=== PATIENT | male | born 1950 | race Caucasian/White ===

== ENCOUNTER 2017-04-12 18:20 | Emergency (ER) | payer MEDICARE, OTHER ==
[2017-04-12 18:33] VITALS: BP 197/90; PULSE 74; RESP 20; TEMP 97.5
[2017-04-12] MEDS ORDERED: GELATIN SPONGE,ABSORB (SMALL) 1 EACH SPONGE TOPICAL STA (19:06)
--- NOTE | 2017-04-12 19:13 | ED ---
Wound/Laceration HPI - General Chief Complaint: Wound/Laceration Stated Complaint: Left grant bleed Time Seen by Provider: 04/12/17 18:56 Source: patient, RN notes reviewed, old records reviewed Mode of arrival: ambulatory Limitations: no limitations - History of Present Illness Initial Comments: This is a 66 year old male with a bleeding varicosity after he removed a scab from the shower. Patient reports he cut his leg last week while mowing the lawn , and was healing well afterward. Patient reports he dried off from the shower and noticed that he was bleeding from a small site on the lower leg. Patient is not on blood thinner. - Related Data Allergies Allergy/AdvReac Type Severity Reaction Status Date / Time No Known Allergies Allergy Verified 04/12/17 18:32 Review of Systems ROS Statement: Those systems with pertinent positive or pertinent negative responses have been documented in the HPI. ROS Other: All systems not noted in ROS Statement are negative. Past Medical History Past Medical History: Hypertension History of Any Multi-Drug Resistant Organisms: None Reported Past Surgical History: Hernia Repair Additional Past Surgical History / Comment(s): sinus surgery Past Psychological History: No Psychological Hx Reported Smoking Status: Current every day smoker Past Alcohol Use History: Daily Past Drug Use History: None Reported General Exam Limitations: no limitations General appearance: alert, in no apparent distress Head exam: Present: atraumatic, normocephalic, normal inspection Eye exam: Present: normal appearance, PERRL, EOMI. Absent: scleral icterus, conjunctival injection, periorbital swelling ENT exam: Present: normal exam, mucous membranes moist Neck exam: Present: normal inspection. Absent: tenderness, meningismus, lymphadenopathy Respiratory exam: Present: normal lung sounds bilaterally. Absent: respiratory distress, wheezes, rales, rhonchi, stridor Cardiovascular Exam: Present: regular rate, normal rhythm, normal heart sounds. Absent: systolic murmur, diastolic murmur, rubs, gallop, clicks GI/Abdominal exam: Present: soft, normal bowel sounds. Absent: distended, tenderness, guarding, rebound, rigid Extremities exam: Present: normal inspection, full ROM, normal capillary refill , other (varicosity over left lwer leg. Patient has 2mm site from where it was bleeding. The bleeding has stopped and scab has reformed. ). Absent: tenderness , pedal edema, joint swelling, calf tenderness Back exam: Present: normal inspection Neurological exam: Present: alert, oriented X3, CN II-XII intact Psychiatric exam: Present: normal affect, normal mood Skin exam: Present: warm, dry, intact, normal color. Absent: rash Course Vital Signs 04/12/17 18:26 Temperature 97.5 F L Pulse Rate 74 Respiratory 20 Rate Blood Pressure 197/90 O2 Sat by Pulse 99 Oximetry Medical Decision Making - Medical Decision Making This is a 66 year old male with a bleeding varicosity after he removed a scab from the shower. Patient reports he cut his leg last week while mowing the lawn , and was healing well afterward. Patient reports he dried off from the shower and noticed that he was bleeding from a small site on the lower leg. PAtient has multiple varicosity on bilateral lower legs. Patient bleeding has subsided on exam. Patient given a piece of gelfoam and compression dressing and advised to avoid taking the dressing off and to not mess with the scab as he will likely rebleed again. Patient agress to treatment plan adn will comply. REturn parameters discussed. Disposition Clinical Impression: Bleeding from varicose vein Disposition: HOME SELF-CARE Condition: Good Instructions: Varicose Veins (ED) Additional Instructions: Patient advised to keep the wound covered. Patient advised to elevate the extremity and bleeding does recur. Keep the dressing on for the next 24 hours. Return to the emergency department if any alarming signs or symptoms occur. Referrals: Tomás Funes MD [Primary Care Provider] - 1-2 days Time of Disposition: 19:12
== END 2017-04-12 19:27 | disposition home or self-care (01) ==
LOC: EC 18:20
DX: I83.892 Varicose veins of left lower extremity with other complications (principal); F17.200 Nicotine dependence, unspecified, uncomplicated
CPT/HCPCS: 99283

== ENCOUNTER → 2022-01-19 | Outpatient (CLI) | payer MEDICARE, OTHER ==
--- NOTE | 2022-01-19 12:51 | CONS ---
CONSULTATION DATE OF SERVICE: 01/19/2022 This 71-year-old gentleman has been evaluated in Sleep Center for obstructive sleep apnea-hypopnea syndrome. HISTORY OF PRESENT ILLNESS/SLEEP-WAKE EVALUATION: The patient has had a history of obstructive sleep apnea for many years. His last study was done in 2013 in another institution. He continues to use his CPAP equipment but still has some awakenings from sleep. His sleep schedule is from 11:30 p.m. to 6 a.m. No problems with falling asleep. No TV in bedroom. No history of hypnagogic hallucinations, sleep paralysis or cataplexy. During the day, the patient takes one nap in the middle of the afternoon. [place] Sleepiness Scale is 7. PAST MEDICAL HISTORY: Positive for hypertension, arthritis. PAST SURGICAL HISTORY: Surgery for nasal septum deviation. MEDICATIONS: Amlodipine, hydralazine. SOCIAL HISTORY: Positive for smoking on and off. Alcohol consumption occasional. FAMILY HISTORY: Positive for hypertension, arthritis. REVIEW OF SYSTEMS: Some awakenings from sleep even while using CPAP equipment, episodes of sleepiness during the day. PHYSICAL EXAMINATION: GENERAL: Pleasant gentleman without distress. VITAL SIGNS: BP 143/72, HR 67, RR 16, height 5 feet 11-3/4 inches, weight 245.2 pounds, body mass index 33.5, temperature 97.0, oxygen saturation at room air 96%. HEENT: PERRLA, EOMI, evaluation of oropharynx showed tongue protrudes midline. Low position of soft palate; Mallampati III. NECK: Supple, no JVD. Thyroid is not palpable. Neck measures 16-1/2 inches in circumference. LUNGS: Clear to percussion and to auscultation. Good air exchange. No wheezing or rhonchi. HEART: S1, S2 regular. No murmurs, gallops, or rubs. ABDOMEN: Soft and nontender. Bowel sounds are present. No organomegaly appreciated. EXTREMITIES: No clubbing or cyanosis. NEGATIVE DEVELOPER: Awake, alert, and oriented X3. Cranial nerves 2 to 7 intact. There is no fasciculation or atrophy. noted. No focal deficits observed. PLAN: 1. Polysomnography for reevaluation of patient's breathing during sleep. 2. CPAP and if necessary BiPAP titration for correction of respiratory abnormalities during sleep. 3. Watching and losing weight. 4. Sleep hygiene with regular time in bed for at least 7-1/2 hours. 5. No driving if feeling any sleepiness. Thank you very much for referring this patient for consultation. Sincerely, Jay Sargent MD, PhD, FAASM Diplomat of [place] [employer] Sleep Medicine Board of [place] [employer] Medicine Elevator Constructor of [facility] [place] MMODL / MADIHAN: [id number] /
--- NOTE | 2022-02-02 15:59 | CONS ---
CONSULTATION ADDENDUM: DATE OF SERVICE: 01/19/2022. This is an addendum to consultation. IMPRESSION: 1. History of obstructive sleep apnea-hypopnea syndrome for more than 15 years. The patient continued to use his CPAP equipment. Low position of soft palate, Mallampati 3. Episodes of sleepiness, obstructive sleep apnea-hypopnea syndrome. 2. Obesity; body mass index 33. 3. Hypertension. 4. History of arthritis. 5. Status surgery for nasal septum deviation. MMODL / IJN: [id number] /
== END ==
LOC: SLEEP 11:33
PROVIDERS: ATTEND Internal Medicine
DX: G47.33 Obstructive sleep apnea (adult) (pediatric) (principal); I10 Essential (primary) hypertension; E66.9 Obesity, unspecified; F17.200 Nicotine dependence, unspecified, uncomplicated; Z68.33 Body mass index [BMI] 33.0-33.9, adult; Z99.89 Dependence on other enabling machines and devices; Z98.890 Other specified postprocedural states; M19.90 Unspecified osteoarthritis, unspecified site; Z79.899 Other long term (current) drug therapy
CPT/HCPCS: 99202

== ENCOUNTER → 2022-04-12 | Outpatient (CLI) | payer MEDICARE, OTHER ==
--- NOTE | 2022-04-12 17:02 | P.PN ---
Subjective DATE: [] FOLLOW UP VISIT. Patient with obstructive sleep apnea hypopnea syndrome return to sleep center for follow-up visit. Recently patient had sleep study which documented obstructive sleep apnea hypopnea syndrome. Patient was initiated on new PAP unit and today is his first visit after starting to use new unit. Patient was able to use PAP equipment every night for the whole night. The patient does not have significant problems with the mask, PAP pressure and humidification. [place] sleepiness scale is 7. I checked Bi PAP unit. PAP unit pressure 19/15 cm H2O. Usage is 93 % for more then 4 hours, average 6 hours 50 minutes per night. Leak is 0.1 l/m, which is perfect. Apnea Hypopnea Index is 10.4, which is increased . MEDICATIONS:1. Amlodipine 2. valsartan During physical exam: GENERAL: A pleasant patient without any distress. VITAL SIGNS: BP 146/73, HR 67, RR 20 , weight 235.4, temperature 97.3, oxygen saturation at room air 94 . HEENT: PERRLA, EOMI.low position of soft palate, Mallapati 3 . NECK: Supple. No JVD. LUNGS: Clear to percussion and to auscultation. Good air exchange. No wheezing or rhonchi. HEART: S1, S2 regular. ABDOMEN: Soft and nontender.[] EXTREMITIES: No clubbing or cyanosis. TANKER SERVICEMAN: Awake, alert, and oriented x3. No focal deficit. Impressions: 1. Obstructive sleep apnea-hypopnea syndrome. Patient demonstrated great compliance with treatment, benefiting from treatment. Apnea-hypopnea index slightly increased to 10.4. 2. Periodic limb movements have been documented during the sleep study, no significant clinical complaints. 3. Hypertension. 4. Arthritis. 5. Status post surgery for nasal septum deviation. Plan: 1. Continue using BiPAP equipment every night for the whole night. I changed regimen in BiPAP unit to automatic with the maximal inspiratory pressure 23, minimal expiratory pressure 10 and pressure-support 4 cm of water 2. To change air filter at least 1-2 times per month. 3. PAP unit should stay lower then position of the head. 4. Advised patient to remove all remaining water from humidifier canister daily and make it dry after each usage. Refill canister with fresh distilled water before each usage. 5. Sleep hygiene with regular time in bed for at least 8 hours. 6. Precautions related to driving. No driving if feel any sleepiness. 7. I will maintain prescription for PAP supplies including mask, tube, filters. 8. Follow up visit in 3-4 months or earlier if patient has any problems. 9. Watching weight. Thank you very much for allowing me to participate in the management of your patient. Jay Sargent MD, PhD, FAASM. Diplomat of [place] Board [employer] Medicine, Sleep Medicine Board by [employer] Board of [employer] Medicine Marble Ceiling Installer of [facility] [place]
== END ==
LOC: SLEEP 16:34
PROVIDERS: ATTEND Internal Medicine
DX: G47.33 Obstructive sleep apnea (adult) (pediatric) (principal); G47.61 Periodic limb movement disorder; I10 Essential (primary) hypertension; M19.90 Unspecified osteoarthritis, unspecified site; Z98.890 Other specified postprocedural states; Z99.89 Dependence on other enabling machines and devices; F17.200 Nicotine dependence, unspecified, uncomplicated

== ENCOUNTER → 2022-07-13 | Outpatient (CLI) | payer MEDICARE, OTHER ==
--- NOTE | 2022-07-13 11:37 | P.PN ---
Subjective DATE: 07/13/2022 FOLLOW UP VISIT. Patient with obstructive sleep apnea hypopnea syndrome return to sleep center for follow-up visit. Information from previous visit have been reviewed. Patient is using PAP equipment every night for the whole night, getting PAP supplies in time. The patient does not have significant problems with the mask, PAP unit and humidification. [place] sleepiness scale is 6, which is normal. I checked BPAP unit. PAP unit pressure inspiratory maximal 23, expiratory minimal 10, average 22.5/18.5 cm H2O. Usage is 95 % for more then 4 hours, average 6.9 hours per night. Leak is 0 l/m, which is in perfect range. Apnea Hypopnea Index is 26.3 for the last months, which is significantly increased. Apnea-hypopnea index for the last 6 months 13.4. MEDICATIONS:1. Amlodipine 2. Losartan 3. Patient does not remember exactly the name of 3rd medication for the blood pressure. During physical exam: GENERAL: A pleasant patient without any distress. VITAL SIGNS: BP 174/79, HR 67, RR 18, weight 238.0, which is on 3 pounds more than during previous visit, temperature 97.0, oxygen saturation at room air 97 % . HEENT: PERRLA, EOMI.low position of soft palate, Mallapati 3 . NECK: Supple. No JVD. LUNGS: Clear to percussion and to auscultation. Good air exchange. No wheezing or rhonchi. HEART: S1, S2 regular. ABDOMEN: Soft and nontender.[] EXTREMITIES: No clubbing or cyanosis. SUPERINTENDENT GENERAL: Awake, alert, and oriented x3. No focal deficit. Impressions: 1. Obstructive sleep apnea-hypopnea syndrome. Patient demonstrated great compliance with treatment, benefiting from treatment, but apnea-hypopnea index significantly increased mostly secondary to obstructive events according to dating from the BiPAP machine. 2. Hypertension. 3. Arthritis. 4. Periodic limb movements during the sleep study, no clinical complaints. 5. Status post surgery for nasal septum deviation. Plan: 1. Continue using PAP equipment every night for the whole night. I increased pressure in BiPAP unit to maximal inspiratory pressure 25 and minimal expiratory pressure 12 cm of water 2. To change air filter at least 1-2 times per month. 3. PAP unit should stay lower then position of the head. 4. Advised patient to remove all remaining water from humidifier canister daily and make it dry after each usage. Refill canister with fresh distilled water before each usage. 5. Sleep hygiene with regular time in bed for at least 8 hours. 6. Precautions related to driving. No driving if feel any sleepiness. 7. I will maintain prescription for PAP supplies including mask, tube, filters. 8. Follow up visit in 1-2 months or earlier if patient has any problems. 9. Watching weight. Thank you very much for allowing me to participate in the management of your patient. Jay Sargent MD, PhD, FAASM. Diplomat of [place] [employer] Sleep Medicine, Sleep Medicine Board by [place] [employer] Medicine Adult Protective Caseworker of [facility] [place]
== END ==
LOC: SLEEP 10:17
PROVIDERS: ATTEND Internal Medicine
DX: G47.33 Obstructive sleep apnea (adult) (pediatric) (principal); Z99.89 Dependence on other enabling machines and devices; I10 Essential (primary) hypertension; M13.80 Other specified arthritis, unspecified site; G47.61 Periodic limb movement disorder; Z98.890 Other specified postprocedural states; F17.200 Nicotine dependence, unspecified, uncomplicated
CPT/HCPCS: 99212

== ENCOUNTER → 2022-07-28 | Outpatient (CLI) | payer MEDICARE, OTHER | END | disposition home or self-care (01) | LOC: LABWHC1 12:57 | PROVIDERS: ATTEND Allergy & Immunology | DX: M79.10 Myalgia, unspecified site (principal); M25.50 Pain in unspecified joint | CPT/HCPCS: 36415; 85652; 86140 ==

== ENCOUNTER → 2022-09-20 | Outpatient (CLI) | payer MEDICARE, OTHER ==
--- NOTE | 2022-09-20 11:36 | P.PN ---
Subjective DATE: 09/20/2022 FOLLOW UP VISIT. Patient with obstructive sleep apnea hypopnea syndrome return to sleep center for follow-up visit. Information from previous visit have been reviewed. Patient is using BPAP equipment every night for the whole night, getting PAP supplies in time. The patient does not have significant problems with the mask, BPAP unit and humidification. During previous visit apnea-hypopnea index was significantly increased to 26.3. And I changed BiPAP Pap pressure in the unit. Patient feels better after pressure was increased, sleeps better especially during the last week. [place] sleepiness scale is 8, which is normal. I checked information from BPAP unit. BPAP unit pressure maximal inspiratory pressure 25, minimal expiratory pressure 12, pressure-support 4, average pressure 21/17 cm H2O. Usage is 95 % for more then 4 hours, average 7.3 hours per night. Leak is 4.5 l/m, which is in acceptable range. Apnea Hypopnea Index is 11.2 average for last 2 months, 7.3 for the last months and 2.7 for the last week, and 1.5 for the last night. MEDICATIONS:1. Amlodipine 2. Losartan During physical exam: GENERAL: A pleasant patient without any distress. VITAL SIGNS: BP 162/79, HR 65, RR 18 , weight 232.2, patient lost 8 pounds since last visit, temperature 97.1, oxygen saturation at room air 96 % . HEENT: PERRLA, EOMI.low position of soft palate, Mallapati 3 . NECK: Supple. No JVD. LUNGS: Clear to percussion and to auscultation. Good air exchange. No wheezing or rhonchi. HEART: S1, S2 regular. ABDOMEN: Soft and nontender.[] EXTREMITIES: No clubbing or cyanosis. SAND AND GRAVEL PLANT OPERATOR: Awake, alert, and oriented x3. No focal deficit. Impressions: 1. Obstructive sleep apnea-hypopnea syndrome. Patient demonstrated great compliance with treatment, benefiting from treatment. Respiration improved after pressure was adjusted during the last visit. 2. Hypertension. 3. Arthritis. 4. Periodic limb movements during sleep test, no clinical symptoms. 5. Status post surgical treatment for nasal septum deviation. Plan: 1. Continue using PAP equipment every night for the whole night. 2. To change air filter at least 1-2 times per month. 3. PAP unit should stay lower then position of the head. 4. Advised patient to remove all remaining water from humidifier canister daily and make it dry after each usage. Refill canister with fresh distilled water before each usage. 5. Sleep hygiene with regular time in bed for at least 8 hours. 6. Precautions related to driving. No driving if feel any sleepiness. 7. I will maintain prescription for PAP supplies including mask, tube, filters. 8. Follow up visit in 4 months or earlier if patient has any problems. 9. Watching weight. Thank you very much for allowing me to participate in the management of your patient. Jay Sargent MD, PhD, FAASM. Diplomat of [place] Board of Sleep Medicine, Sleep Medicine Board by [employer] Board of Internal Medicine Accounts Receivable Accountant of [facility] [place]
== END ==
LOC: SLEEP 10:33
PROVIDERS: ATTEND Internal Medicine
DX: G47.33 Obstructive sleep apnea (adult) (pediatric) (principal); Z99.89 Dependence on other enabling machines and devices; I10 Essential (primary) hypertension; G47.61 Periodic limb movement disorder; Z98.890 Other specified postprocedural states; M19.90 Unspecified osteoarthritis, unspecified site; Z79.899 Other long term (current) drug therapy; F17.200 Nicotine dependence, unspecified, uncomplicated
CPT/HCPCS: 99212

== ENCOUNTER → 2023-01-17 | Outpatient (CLI) | payer MEDICARE, OTHER ==
--- NOTE | 2023-01-17 12:07 | P.PN ---
Subjective DATE: 01/17/2023 FOLLOW UP VISIT. Patient with obstructive sleep apnea hypopnea syndrome return to sleep center for follow-up visit. Information from previous visit have been reviewed. Patient is using BPAP equipment every night for the whole night, getting PAP supplies in time. The patient does not have significant problems with the mask, PAP unit and humidification. [place] sleepiness scale is 7, which is normal. I checked information from BPAP unit. BPAP unit pressure maximal inspiratory pressure 25, minimal expiratory pressure 12, average pressure 20.6 over 16.6 cm H2O. Usage is average 7.1 hours per night. Leak is perfect 0 l/m. Apnea Hypopnea Index is 4.4, which is normal. MEDICATIONS:1. Amlodipine 2. Valsartan During physical exam: GENERAL: A pleasant patient without any distress. VITAL SIGNS: BP 166/82, HR 59, RR 12 , weight 236, temperature 97.8, oxygen saturation at room air 95 % . HEENT: PERRLA, EOMI.low position of soft palate, Mallapati 3 . NECK: Supple. No JVD. LUNGS: Clear to percussion and to auscultation. Good air exchange. No wheezing or rhonchi. HEART: S1, S2 regular. ABDOMEN: Soft and nontender.[] EXTREMITIES: No clubbing or cyanosis. ENGINEERING DESIGN SUPERVISOR: Awake, alert, and oriented x3. No focal deficit. Impressions: 1. Obstructive sleep apnea-hypopnea syndrome. Patient demonstrated good compliance with treatment, benefiting from treatment. 2. Hypertension. 3. History of periodic limb movements during sleep study, no complaints. 4. History of arthritis. 5. Status post surgical treatment for nasal septum deviation. 6. Minimal obesity falling body mass index, which is 32.1, patient increased weight of 4 pounds comparing to previous visit. Plan: 1. Continue using PAP equipment every night for the whole night. 2. To change air filter at least 1-2 times per month. 3. PAP unit should stay lower then position of the head. 4. Advised patient to remove all remaining water from humidifier canister daily and make it dry after each usage. Refill canister with fresh distilled water before each usage. 5. Sleep hygiene with regular time in bed for at least 8 hours. 6. Precautions related to driving. No driving if feel any sleepiness. 7. I will maintain prescription for PAP supplies including mask, tube, filters. 8. Watching and losing weight. 9. Follow up visit in 6 months or earlier if patient has any problems. Thank you very much for allowing me to participate in the management of your patient. Jay Sargent MD, PhD, FAASM. Diplomat of [place] [employer] Sleep Medicine, Sleep Medicine Board by [place] [employer] of Internal Medicine Reservoir Engineering Manager of [facility] [place]
== END ==
LOC: SLEEP 11:14
PROVIDERS: ATTEND Internal Medicine
DX: G47.33 Obstructive sleep apnea (adult) (pediatric) (principal); I10 Essential (primary) hypertension; E66.9 Obesity, unspecified; Z68.32 Body mass index [BMI] 32.0-32.9, adult; Z87.39 Personal history of other diseases of the musculoskeletal system and connective tissue
CPT/HCPCS: 99212

== ENCOUNTER → 2023-07-26 | Outpatient (CLI) | payer MEDICARE, OTHER ==
--- NOTE | 2023-07-26 11:01 | P.PN ---
Subjective DATE: 07/26/2023 FOLLOW UP VISIT. Patient with obstructive sleep apnea hypopnea syndrome return to sleep center for follow-up visit. Information from previous visit have been reviewed. Patient is using PAP equipment every night for the whole night, getting PAP supplies in time. The patient does not have significant problems with the mask, PAP unit and humidification. [place] sleepiness scale is increased to 12. I checked information from PAP unit. PAP unit pressure maximal inspiratory pressure 25, minimal expiratory pressure 12, pressure-support 4, average pressure 20.5 over 16.5 cm H2O. Usage is 100 % for more then 4 hours, average 6.4 hours per night. Leak is 0 l/m, which is in perfect range. Apnea Hypopnea Index is 6.0, which is borderline. MEDICATIONS:1. Amlodipine 2. Losartan During physical exam: GENERAL: A pleasant patient without any distress. VITAL SIGNS: BP 167/78, HR 65, RR 16 , weight 223.8, temperature 97.8, oxygen saturation at room air 96 % . HEENT: PERRLA, EOMI.low position of soft palate, Mallapati 3 . NECK: Supple. No JVD. LUNGS: Clear to percussion and to auscultation. Good air exchange. No wheezing or rhonchi. HEART: S1, S2 regular. ABDOMEN: Soft and nontender.[] EXTREMITIES: No clubbing or cyanosis. REPAIR ELECTRIC MOTOR ASSEMBLER: Awake, alert, and oriented x3. No focal deficit. Impressions: 1. Obstructive sleep apnea-hypopnea syndrome. Patient demonstrated great compliance with treatment, benefiting from treatment. 2. Hypertension. 3. Periodic limb movements during sleep study, no complaints at the present time. 4. History of arthritis. 5. Status post surgical treatment for nasal septum deviation. 6. Patient lost 13 pounds since previous visit. Plan: 1. Continue using PAP equipment every night for the whole night. 2. To change air filter at least 1-2 times per month. 3. PAP unit should stay lower then position of the head. 4. Advised patient to remove all remaining water from humidifier canister daily and make it dry after each usage. Refill canister with fresh distilled water before each usage. 5. Sleep hygiene with regular time in bed for at least 8 hours. 6. Precautions related to driving. No driving if feel any sleepiness. 7. I will maintain prescription for PAP supplies including mask, tube, filters. 8. Follow up visit in 6 months or earlier if patient has any problems. 9. Watching weight. Thank you very much for allowing me to participate in the management of your patient. Jay Sargent MD, PhD, FAASM. Diplomat of [place] Board of Sleep Medicine, Sleep Medicine Board by [place] Board of Internal Medicine Cyber Crime Investigator of [facility] [place]
== END ==
LOC: 3 N SLEEP 10:12
PROVIDERS: ATTEND Internal Medicine
DX: G47.33 Obstructive sleep apnea (adult) (pediatric) (principal); I10 Essential (primary) hypertension; G47.61 Periodic limb movement disorder; M19.90 Unspecified osteoarthritis, unspecified site; J34.2 Deviated nasal septum; F17.200 Nicotine dependence, unspecified, uncomplicated; Z99.89 Dependence on other enabling machines and devices
CPT/HCPCS: 99212

== ENCOUNTER → 2023-08-17 | Outpatient (CLI) | payer MEDICARE, OTHER ==
--- NOTE | 2023-08-17 12:31 | XR ---
EXAM TYPE: LUMBAR SPINE X RAY SERIES COMPARISON: NONE HISTORY: Chronic back pain TECHNIQUE: 4 views are submitted. FINDINGS: Alignment is anatomic. The pedicles are intact. The transverse processes are intact. There is diff use osteopenia with multilevel moderate degenerative disc disease and advanced facet arthropathy invo lving the mid and lower lumbar spine. Suspect multilevel foraminal encroachment. Grade 1 anterior lis thesis L4-L5 likely degenerative. There is retrolisthesis of L2-3 and L3-L4. Vascular calcifications are noted. Suspect a 3.2 cm abdominal aortic aneurysm. Interspinous distance narrowing compatible wit h [place] disease. IMPRESSION: 1. Multilevel moderate degenerative disc disease and facet arthropathy as discussed above. Suspect mu ltilevel foraminal encroachment recommend MRI. 2. A 3.2 cm abdominal aortic aneurysm suspected.
== END | disposition home or self-care (01) ==
LOC: RADXRMAIN 12:00
PROVIDERS: ATTEND Internal Medicine Geriatric Medicine
DX: M51.36 Other intervertebral disc degeneration, lumbar region (principal); M47.816 Spondylosis without myelopathy or radiculopathy, lumbar region; G89.29 Other chronic pain
CPT/HCPCS: 72100

== ENCOUNTER 2023-10-16 09:08 | Day surgery (SDC) | payer MEDICARE, OTHER ==
[~2023-10-16 09:08] MED LIST: LIDOCAINE 1% (10MG/ML) FOR IV START INTRADERMA PRN
[2023-10-16] MEDS: LACTATED RINGERS 1,000 ML IV SCH (09:49)
[2023-10-16 10:06] VITALS: TEMP 97.8
[2023-10-16] MEDS ORDERED: PROPOFOL 10 MG/ML 20 ML VIAL IV ONE (10:38)
--- NOTE | 2023-10-16 10:59 | P.PCN ---
Date of Procedure: 10/16/23 Procedure(s) Performed: BRIEF HISTORY: Patient is a 73-year-old pleasant white male scheduled for an elective colonoscopy as a par screening for colon cancer. t of PROCEDURE PERFORMED: Colonoscopy with snare polypectomy. PREOPERATIVE DIAGNOSIS: Screening for colon cancer. IV sedation per Anesthesia. PROCEDURE: After informed consent was obtained, the patient, was brought into the endoscopy unit. IV sedation was administered by Anesthesia under continuous monitoring. Digital rectal examination was normal. Initially the Olympus CF-160 flexible video colonoscope was then inserted in the rectum, gradually advanced into the cecum without any difficulty. Careful examination was performed as the scope was gradually being withdrawn. Ileocecal valve and the appendiceal orifice were visualized and appeared normal. Prep was fair. Mucosa of the cecum, ascending colon, appeared normal. The hepatic flexure there was a 6 minute a polyp removed by cold snare polypectomy. In the transverse colon there was a 5 mm and 7 mm polyp that was removed by cold snare polypectomy. Rest of the transverse colon, descending colon, sigmoid colon, and rectum appeared normal. Retroflexion was performed in the rectum and no lesions were seen. The patient tolerated the procedure well. IMPRESSION: 6 mm hepatic flexure polyp status post cold snare polypectomy 5 mm and 7 mm transverse colon polyp status post snare polypectomy RECOMMENDATIONS: Findings of this examination were discussed with the patient a s his family.. He was advised to follow with the biopsy results. If the biopsy result adenoma he can have a repeat colonoscopy in 3 years
[2023-10-16 11:35] VITALS: BP 127/78; PULSE 78; RESP 18
== END 2023-10-16 11:31 | disposition home or self-care (01) ==
LOC: ORWHC2ENDO 09:08
PROVIDERS: ATTEND Internal Medicine Gastroenterology
DX: Z12.11 Encounter for screening for malignant neoplasm of colon (principal); D12.3 Benign neoplasm of transverse colon; I10 Essential (primary) hypertension; G47.33 Obstructive sleep apnea (adult) (pediatric); K21.9 Gastro-esophageal reflux disease without esophagitis; Z79.899 Other long term (current) drug therapy; Z98.890 Other specified postprocedural states
CPT/HCPCS: 88305; 45385; J2704

== ENCOUNTER → 2024-01-14 | Outpatient (CLI) | payer MEDICARE, OTHER ==
--- NOTE | 2024-01-14 09:19 | US ---
EXAMINATION TYPE: US duplex aorta DATE OF EXAM: 01/14/2024 COMPARISON: NONE CLINICAL INDICATION: Male, 73 years old with history of I71.40 AAA WITHOUT RUPTURE; F/U to xray TECHNIQUE: Multiple sonographic images of the abdominal aorta are obtained. FINDINGS: EXAM MEASUREMENTS: Abdominal Aorta: Proximal: 3.2 x 2.3 cm Mid: 2.3 x 2.4 cm Distal: 2.3 x 2.7 cm Bifurcation: Right Iliac: 1.3 x 1.5 cm Left Iliac: 1.1 x 1.6 cm WEB MARKETING STRATEGIST NOTES: Upper limits of normal proximal aorta 3.2 cm found on previous x ray. IMPRESSION: Proximal abdominal aorta dilation measuring up to 3.2 cm consider complete evaluation with CT angiogr am of the abdomen and pelvis.
== END | disposition home or self-care (01) ==
LOC: RADUSWWP 07:27
PROVIDERS: ATTEND Internal Medicine Geriatric Medicine
DX: I71.40 Abdominal aortic aneurysm, without rupture, unspecified (principal)
CPT/HCPCS: 93979

== ENCOUNTER → 2024-01-23 | Outpatient (CLI) | payer MEDICARE, OTHER ==
[2024-01-23 12:02] LABS: African American GFR (CKD) >90 (>60 ml/min/1.73 sqM); Blood Urea Nitrogen 24 mg/dL (9-20); Non-African American GFR(CKD) 87 (>60 ml/min/1.73 sqM)
--- NOTE | 2024-01-23 13:27 | CT ---
EXAMINATION TYPE: CT angio abdomen pelvis DATE OF EXAM: 01/23/2024 COMPARISON: None HISTORY: AAA CT DLP: 1097.3 mGycm CONTRAST: CTA abdominal aorta with 3-D reconstruction is performed without Oral Contrast and without and with I V Contrast, patient injected with 100 mL of Isovue 370. Contrast CTA of the abdominal aorta was performed from the lung bases through the base of the pelvis. 3-D reconstruction imaging obtained at a separate workstation. ABDOMINAL AORTA: Aneurysm at the level of the aortic hiatus measuring 3.2 cm AP dimension. Patent miguel iac and SMA arteries although there is calcific plaque at their origins. Abdominal aorta is otherwise of normal caliber measuring up to 2.6 cm. Scattered mural thrombus. Calcific plaque at the origin of the left renal artery may reflect a degree of renal artery stenosis. Right renal artery is patent wi th mild calcific plaque seen. Calcific plaque noted extending into the iliac arteries which are paten t bilaterally. LIVER/GB- No significant abnormality is seen. PANCREAS- No significant abnormality is seen. SPLEEN- No significant abnormality is seen. ADRENALS- No significant abnormality is seen. KIDNEYS/BLADDER-renal cystic changes noted bilaterally. BOWEL- No Significant abnormality GENITAL ORGANS: Prostate gland enlargement. LYMPH NODES- No greater than 1cm abdominal or pelvic lymph nodes areappreciated. OSSEOUS STRUCTURES- No significant abnormality is seen. OTHER- No significant abnormality is seen. IMPRESSION- 1. Abdominal aortic aneurysm at the level of aortic hiatus.
== END | disposition home or self-care (01) ==
LOC: RADCTMAIN 11:07
PROVIDERS: ATTEND Internal Medicine Geriatric Medicine
DX: I71.40 Abdominal aortic aneurysm, without rupture, unspecified (principal)
CPT/HCPCS: 82565; 84520; 36415; 74174; Q9967

== ENCOUNTER → 2024-02-28 | Outpatient (CLI) | payer MEDICARE, OTHER ==
[2024-02-28 10:28] VITALS: BP 145/64; PULSE 65; RESP 16; TEMP 97.6
--- NOTE | 2024-02-28 10:45 | P.PROGSL ---
Subjective DATE: 02/28/2024 FOLLOW UP VISIT. Patient with obstructive sleep apnea hypopnea syndrome return to sleep center for follow-up visit. Information from previous visit have been reviewed. Patient is using PAP equipment every night for the whole night, getting PAP supplies in time. The patient does not have significant problems with the mask, PAP unit and humidification. [place] sleepiness scale is 8, which is normal. I checked information from PAP unit. PAP unit pressure maximal inspiratory pressure 25, minimal expiratory pressure 12, pressure support 4, average pressure 21/17 cm H2O. Usage is 100% for more then 4 hours, average 7 hours per night. Leak is 2 l/m, which is in acceptable range. Apnea Hypopnea Index is 6.0, which is normal. MEDICATIONS: Please see below During physical exam: GENERAL: A pleasant patient without any distress. VITAL SIGNS: Please see below. HEENT: PERRLA, EOMI.low position of soft palate, Mallapati 3. NECK: Supple. No JVD. LUNGS: Clear to percussion and to auscultation. Good air exchange. No wheezing or rhonchi. HEART: S1, S2 regular. ABDOMEN: Soft and nontender.[] EXTREMITIES: No clubbing or cyanosis. DIRECTOR OF COMMUNITY EDUCATION: Awake, alert, and oriented x3. No focal deficit. Impressions: 1. Obstructive sleep apnea-hypopnea syndrome. Patient demonstrated great compliance with treatment, benefiting from treatment. 2. Hypertension. 3. Periodic limb movements by results of sleep study, no clinical complaints. 4. History of arthritis. 5. Status post surgical treatment for nasal septum deviation. 6. Overweight, patient lost 14 pounds since previous visit, BMI 29.3. Plan: 1. Continue using PAP equipment every night for the whole night. 2. To change air filter at least 1-2 times per month. 3. PAP unit should stay lower then position of the head. 4. Advised patient to remove all remaining water from humidifier canister daily and make it dry after each usage. Refill canister with fresh distilled water before each usage. 5. Sleep hygiene with regular time in bed for at least 8 hours. 6. Precautions related to driving. No driving if feel any sleepiness. 7. I will maintain prescription for PAP supplies including mask, tube, filters. 8. Watching weight. 9. Follow up visit in 6 months or earlier if patient has any problems. Thank you very much for allowing me to participate in the management of your patient. Jay Sargent MD, PhD, FAASM. Diplomat of [place] [employer], Sleep Medicine Board by [employer] Tariff Clerk of [facility] [place] Objective - Vital Signs Vital Signs: Vital Signs Temp 97.6 F 02/28/24 10:27 Pulse 65 02/28/24 10:27 Resp 16 02/28/24 10:27 BP 145/64 02/28/24 10:27 Pulse Ox 95 02/28/24 10:27 FiO2 Intake & Output 02/27/24 02/28/24 02/28/24 18:59 06:59 18:59 Weight 94.914 kg Home Medications: Home Medications Medication Instructions Recorded Confirmed Type Amlodipine-Valsartan 5-320 1 tab PO HS 10/12/23 10/16/23 History Unk Multi Vitamin 1 tab PO DAILY 10/12/23 10/16/23 History hydrALAZINE HCL 50 mg PO DIRECTED PRN 10/15/23 10/16/23 History
== END ==
LOC: 3 N SLEEP 10:16
PROVIDERS: ATTEND Internal Medicine
DX: G47.33 Obstructive sleep apnea (adult) (pediatric) (principal); I10 Essential (primary) hypertension; G47.61 Periodic limb movement disorder; E66.3 Overweight; F17.200 Nicotine dependence, unspecified, uncomplicated; Z87.39 Personal history of other diseases of the musculoskeletal system and connective tissue; Z98.890 Other specified postprocedural states; Z99.89 Dependence on other enabling machines and devices; Z68.29 Body mass index [BMI] 29.0-29.9, adult; Z91.018 Allergy to other foods; Z79.899 Other long term (current) drug therapy
CPT/HCPCS: 99212

== ENCOUNTER → 2024-11-19 | Outpatient (CLI) | payer MEDICARE, OTHER ==
[2024-11-19 11:06] VITALS: BP 155/78; PULSE 64; RESP 16; TEMP 97.9
--- NOTE | 2024-11-19 11:54 | P.PROGSL ---
Subjective DATE: 11/19/2024 FOLLOW UP VISIT. Patient with obstructive sleep apnea hypopnea syndrome return to sleep center for follow-up visit. Information from previous visit have been reviewed. Patient is using PAP equipment every night for the whole night, getting PAP supplies in time. The patient does not have significant problems with the mask, PAP unit and humidification. [place] sleepiness scale is 6, which is normal. I checked information from PAP unit. BPAP unit pressure maximal inspiratory pressure 25, minimal expiratory pressure 12, pressure support 4, average pressure 20.3/16.3 cm H2O. Usage is 100% for more then 4 hours, average 6.5 hours per night. Leak is 5 l/m, which is in acceptable range. Apnea Hypopnea Index is 4.3, which is normal. MEDICATIONS have been reviewed, please see below. During physical exam: GENERAL: A pleasant patient without any distress. VITAL SIGNS: Please see below, weight is 212 lbs. HEENT: PERRLA, EOMI.low position of soft palate, Mallapati 3. NECK: Supple. No JVD. LUNGS: Clear to percussion and to auscultation. Good air exchange. No wheezing or rhonchi. HEART: S1, S2 regular. ABDOMEN: Soft and nontender.[] EXTREMITIES: No clubbing or cyanosis. REHABILITATION PSYCHOLOGIST: Awake, alert, and oriented x3. No focal deficit. Impressions: 1. Obstructive sleep apnea-hypopnea syndrome. Patient demonstrated great compliance with treatment, benefiting from treatment. 2. Hypertension. 3. Periodic limb movements have been documented during the sleep study, no complaints. Patient sleeps well. 4. History of arthritis. 5. Status post surgical treatment for nasal septum deviation. 6. Overweight, BMI 29.1, weight about the same as during previous visit. Plan: 1. Continue using PAP equipment every night for the whole night. 2. Sleep hygiene with regular time in bed for at least 7.5-8 hours 3. PAP unit should stay lower then position of the head. 4. Advised patient to remove all remaining water from humidifier canister daily and make it dry after each usage. Refill canister with fresh distilled water before each usage. 5. Watching weight. 6. Precautions related to driving. No driving if feel any sleepiness. 7. I will maintain prescription for PAP supplies including mask, tube, filters. 8. Follow up visit in 8 months or earlier if patient has any problems. Thank you very much for allowing me to participate in the management of your patient. Jay Sargent MD, PhD, FAASM. Diplomat of [place] [employer], Sleep Medicine Board by [place] [employer] Enrollment Nurse of [facility] [place] Objective - Vital Signs Vital Signs: Vital Signs Temp 97.9 F 11/19/24 11:06 Pulse 64 11/19/24 11:06 Resp 16 11/19/24 11:06 BP 155/78 11/19/24 11:06 Pulse Ox 95 11/19/24 11:06 FiO2 Home Medications: Home Medications Medication Instructions Recorded Confirmed Type Amlodipine-Valsartan 5-320 1 tab PO HS 10/12/23 11/19/24 History Unk Multi Vitamin 1 tab PO DAILY 10/12/23 10/16/23 History hydrALAZINE HCL 50 mg PO DIRECTED PRN 10/15/23 10/16/23 History
== END ==
LOC: 3 N SLEEP 10:28
PROVIDERS: ATTEND Internal Medicine
DX: G47.33 Obstructive sleep apnea (adult) (pediatric) (principal); I10 Essential (primary) hypertension; G47.61 Periodic limb movement disorder; E66.3 Overweight; F17.210 Nicotine dependence, cigarettes, uncomplicated; Z87.39 Personal history of other diseases of the musculoskeletal system and connective tissue; Z87.09 Personal history of other diseases of the respiratory system; Z68.29 Body mass index [BMI] 29.0-29.9, adult; Z91.018 Allergy to other foods
CPT/HCPCS: 99212